=== PATIENT | female | born 1950 | race Caucasian/White ===

== ENCOUNTER 2024-07-14 17:09 | Emergency (ER) | payer MEDICARE, SELFPAY | END 2024-07-14 20:38 | disposition home or self-care (01) | LOC: ERS 17:09 | DX: S32.592A Other specified fracture of left pubis, initial encounter for closed fracture (principal); W01.0XXA Fall on same level from slipping, tripping and stumbling without subsequent striking against object, initial encounter | CPT/HCPCS: 99283 ==